=== PATIENT | male | born 1960 | race American Indian/Alaskan Native ===

== ENCOUNTER 2020-08-26 16:57 | Observation (INO) | payer OTHER ==
[2020-08-26] MEDS ORDERED: ASPIRIN 325 MG TAB PO ONE (17:17)
[2020-08-26] MEDS ORDERED: SODIUM CHLORIDE 0.9% 500 ML 500 ML IV SCH (18:00)
[2020-08-26 18:04] LABS: Basophils # (Auto) 0.1 K/mm3 (0.0-0.1); Basophils % (Auto) 1.2 % (0.0-1.8); Eosinophils # (Auto) 0.2 K/mm3 (0.0-0.4); Eosinophils % (Auto) 4.3 % (0.0-4.3); Hematocrit 42.6 % (35.5-45.6); Hemoglobin 15.1 gm/dl (11.8-15.2); Lymphocytes # (Auto) 1.2 K/mm3 (1.2-5.4); Lymphocytes % (Auto) 21.6 % (13.4-35.0); Mean Corpuscular HGB Conc 35 % (32-34); Mean Corpuscular Volume 91 fl (84-94); Monocytes # (Auto) 0.6 K/mm3 (0.0-0.8); Monocytes % (Auto) 10.1 % (0.0-7.3); Platelet Count 144 K/mm3 (140-440); Red Blood Count 4.69 M/mm3 (3.65-5.03); Red Cell Distribution Width 12.8 % (13.2-15.2)
[2020-08-26 18:18] LABS: Alanine Aminotransferase 20 units/L (7-56); Albumin 4.4 g/dL (3.9-5); BUN/Creatinine Ratio 14; Blood Urea Nitrogen 11 mg/dL (9-20); Calcium 8.9 mg/dL (8.4-10.2); Hemolysis Index 12
--- NOTE | 2020-08-26 18:22 | XRay Report ---
CHEST 2 VIEWS INDICATION / CLINICAL INFORMATION: SOB WITH CHEST PRESSURE. COMPARISON: None available. FINDINGS: SUPPORT DEVICES: None. HEART / MEDIASTINUM: The heart size and pulmonary vasculature are normal. The aorta is normal in humza tanja. LUNGS / PLEURA: No significant pulmonary or pleural abnormality. No pneumothorax. ADDITIONAL FINDINGS: No significant additional findings. IMPRESSION: No acute findings. Signer Name: Chidi Morgan MD Signed: 08/26/2020 6:17 PM Workstation Name: [id number]
[2020-08-26 19:05] LABS: INR 1.02 (0.87-1.13)
--- NOTE | 2020-08-27 02:08 | Emergency Department Report ---
ED Chest Pain HPI - General Chief Complaint: Chest Pain Stated Complaint: CHEST PAINS Time Seen by Provider: 08/27/20 01:50 Source: patient Mode of arrival: Ambulatory Limitations: No Limitations - History of Present Illness Initial Comments: Patient is 60 years old male with history of hypertension and remote history of smoking. Patient presented to the ER complaining of substernal chest pain with no radiation. Patient stated that pain has been going on for few days. Patient was sent by his senior lead java developer Dr. Garcia for cardiac catheterization in the morning. Patient stated that he already took his aspirin 325mg. Patient denied any fever or chills. No cough or shortness of breath. MD Complaint: chest pain -: days(s) Onset: during rest Pain Location: substernal Pain Radiation: none Severity scale (0 -10): 5 Quality: tightness, heaviness Improves With: nothing - Related Data Allergies Allergy/AdvReac Type Severity Reaction Status Date / Time No Known Allergies Allergy Verified 08/26/20 18:03 Heart Score - HEART Score History: Moderately suspicious EKG: Non-specific Age: 45-65 Risk factors: 1-2 risk factors Troponin: < normal limit HEART Score: 4 - EKG Read Time Time EKG Completed: 17:34 EKG Read Time: 17:35 ED Review of Systems ROS: Stated complaint: CHEST PAINS Other details as noted in HPI Comment: All other systems reviewed and negative Constitutional: denies: chills, fever Respiratory: denies: cough, shortness of breath, SOB with exertion Cardiovascular: chest pain. denies: palpitations, dyspnea on exertion Gastrointestinal: denies: abdominal pain, nausea, vomiting Neurological: denies: headache, weakness, numbness, paresthesias, confusion ED Past Medical Hx - Past Medical History Previous Medical History?: Yes Hx Hypertension: Yes - Surgical History Past Surgical History?: No - Social History Smoking Status: Never Smoker Substance Use Type: Alcohol ED Physical Exam - General Limitations: No Limitations General appearance: alert, in no apparent distress - Head Head exam: Present: atraumatic, normocephalic, normal inspection - Eye Eye exam: Present: normal appearance, PERRL - ENT ENT exam: Present: normal exam, normal orophraynx, mucous membranes moist - Neck Neck exam: Present: normal inspection, full ROM. Absent: tenderness, meningismus - Respiratory Respiratory exam: Present: normal lung sounds bilaterally - Cardiovascular Cardiovascular Exam: Present: regular rate, normal rhythm, normal heart sounds - GI/Abdominal GI/Abdominal exam: Present: soft, normal bowel sounds. Absent: distended, tenderness, guarding, rebound, rigid, organomegaly, mass, bruit, pulsatile mass, hernia - Extremities Exam Extremities exam: Present: normal inspection, full ROM, normal capillary refill. Absent: tenderness - Back Exam Back exam: Present: normal inspection, full ROM. Absent: CVA tenderness (R), CVA tenderness (L) - Neurological Exam Neurological exam: Present: alert, oriented X3, CN II-XII intact - Psychiatric Psychiatric exam: Present: normal mood - Skin Skin exam: Present: warm, intact, normal color ED Course Vital Signs 08/26/20 08/26/20 08/27/20 17:13 20:50 01:55 Temperature 98.5 F 98.2 F Pulse Rate 62 61 66 Respiratory 18 18 16 Rate Blood Pressure 141/99 Blood Pressure 149/86 157/86 [Right] O2 Sat by Pulse 96 96 100 Oximetry ED Medical Decision Making - Lab Data Result diagrams: 08/26/20 17:42 08/26/20 17:42 - EKG Data -: EKG Interpreted by Or EKG shows normal: sinus rhythm Rate: normal - EKG Data Interpretation: no acute changes - Radiology Data Radiology results: report reviewed - Medical Decision Making Patient is 60 years old male with history of hypertension and remote history of smoking. Patient presented to the ER complaining of substernal chest pain with no radiation. Patient stated that pain has been going on for few days. Patient was sent by his senior lead java developer Dr. Garcia for cardiac catheterization in the morning. Patient stated that he already took his aspirin 325mg. Patient denied any fever or chills. No cough or shortness of breath. EKG showed no ST elevation. Chest x-ray is unremarkable. Labs reviewed and is negative including a troponin x3. Potassium slightly low patient given potassium. I discussed the patient with , he agreed to admit the patient to medical service for further management. Critical Care Time: Yes Critical care time in (mins) excluding proc time.: 30 Critical care attestation.: If time is entered above; I have spent that time in minutes in the direct care of this critically ill patient, excluding procedure time. ED Disposition Clinical Impression: Unstable angina, Acute hypokalemia Disposition: OP ADMIT IP TO THIS HOSP Is pt being admited?: Yes Condition: Stable Instructions: Angina, [id number] Referrals: PRIMARY CARE, [Primary Care Provider] - 3-5 Days
[2020-08-27] MEDS ORDERED: NITROGLYCERIN 0.4 MG TAB SUBL SL PRN (02:48)
[2020-08-27] MEDS ORDERED: MAGNESIUM HYDROXIDE (MOM) ORAL LIQD UDC PO PRN (02:48)
[2020-08-27] MEDS ORDERED: MORPHINE 4 MG/1 ML INJ IV PRN (02:48)
[2020-08-27] MEDS ORDERED: ACETAMINOPHEN 325 MG TAB PO PRN ×2 (02:48)
[2020-08-27] MEDS ORDERED: ONDANSETRON 4 MG/2 ML INJ IV PRN (02:48)
[2020-08-27] MEDS ORDERED: traMADol 50 MG TAB PO PRN (02:48)
[2020-08-27] MEDS ORDERED: SODIUM CHLORIDE 0.9% 500 ML 500 ML IV ONE (03:01)
--- NOTE | 2020-08-27 03:04 | History and Physical Report ---
History of Present Illness Date of examination: 08/27/20 Date of admission: 08/27/20 02:20 Chief complaint: Chest Pain History of present illness: 60-year-old male with known history of hypertension and former smoker presenting in the emergency room today complaining of chest pain. Chest pain has been substernal and there has been no radiation. This has been ongoing for the past few days. He denies any headache or dizziness, denies any nausea vomiting, denies any cough or shortness of breath and no fever or chills. He has been following up with his auto motor mechanic Dr. Garcia who has scheduled him for cardiac catheterization in the a.m. Work-up in the emergency room today include the EKG, chest x-ray and troponin has been unremarkable. Patient is being admitted for chest pain evaluation and has been scheduled for cardiac catheterization in the a.m. He follows up with Dr. Garcia Past History Past Medical History: hypertension Past Surgical History: No surgical history Social history: alcohol abuse (Occasional alcohol) Family history: no significant family history Medications and Allergies Allergies Allergy/AdvReac Type Severity Reaction Status Date / Time No Known Allergies Allergy Verified 08/26/20 18:03 Active Meds: Active Medications Acetaminophen (Acetaminophen 325 Mg Tab) 650 mg PO Q4H PRN PRN Reason: Pain MILD(1-3)/Fever >100.5/THURMAN Acetaminophen (Acetaminophen 325 Mg Tab) 650 mg PO Q6H PRN PRN Reason: Pain, Mild (1-3) Aspirin (Aspirin Ec 325 Mg Tab) 325 mg PO ONCE ONE Stop: 08/27/20 06:01 Heparin Sodium (Porcine) (Heparin 5,000 Unit/1 Ml Vial) 5,000 unit SUB-Q Q8HR KEYLA Sodium Chloride (Nacl 0.9% 500 Ml) 500 mls @ 50 mls/hr IV DIRECT KEYLA Stop: 08/27/20 03:59 Potassium Chloride (Kcl 10meq/100ml) 10 meq in 100 mls @ 100 mls/hr IV Q1H KEYLA Stop: 08/27/20 04:59 Magnesium Hydroxide (Magnesium Hydroxide (Mom) Oral Liqd Udc) 30 ml PO Q4H PRN PRN Reason: Constipation Morphine Sulfate (Morphine 4 Mg/1 Ml Inj) 2 mg IV Q5MIN PRN PRN Reason: Chest Pain Nitroglycerin (Nitroglycerin 0.4 Mg Tab Subl) 0.4 mg SL Q5M PRN PRN Reason: Chest Pain Ondansetron HCl (Ondansetron 4 Mg/2 Ml Inj) 4 mg IV Q8H PRN PRN Reason: Nausea And Vomiting Sodium Chloride (Sodium Chloride 0.9% 10 Ml Flush Syringe) 10 ml IV BID KEYLA Sodium Chloride (Sodium Chloride 0.9% 10 Ml Flush Syringe) 10 ml IV PRN PRN PRN Reason: LINE FLUSH Sodium Chloride (Sodium Chloride 0.9% 10 Ml Flush Syringe) 10 ml IV PRN PRN PRN Reason: LINE FLUSH Tramadol HCl (Tramadol 50 Mg Tab) 50 mg PO Q6H PRN PRN Reason: Pain, Moderate (4-6) Review of Systems Constitutional: no fever, no chills Ears, nose, mouth and throat: no nasal congestion, no sore throat Cardiovascular: chest pain, no palpitations Respiratory: no cough, no shortness of breath Gastrointestinal: no abdominal pain, no nausea, no vomiting, no diarrhea Genitourinary Male: no dysuria, no hematuria, no flank pain, no nocturia Musculoskeletal: no neck pain, no low back pain Integumentary: no rash, no pruritis Neurological: no headaches, no confusion Psychiatric: no anxiety, no depression Endocrine: no polyphagia, no polydipsia, no polyuria, no nocturia Exam - Constitutional Vitals: Temp Pulse Resp BP Pulse Ox 98.2 F 66 16 157/86 100 08/27/20 01:55 08/27/20 01:55 08/27/20 01:55 08/27/20 01:55 08/27/20 01:55 General appearance: Present: no acute distress, well-nourished - EENT Eyes: Present: PERRL, EOM intact. Absent: scleral icterus ENT: hearing intact, clear oral mucosa, dentition normal - Neck Neck: Present: supple, normal ROM - Respiratory Respiratory effort: normal Respiratory: bilateral: CTA - Cardiovascular Rhythm: regular Heart Sounds: Present: S1 & S2. Absent: gallop, systolic murmur, diastolic murmur, rub, click - Extremities Extremities: no ischemia, pulses intact, pulses symmetrical, No edema, normal temperature, normal color, Full ROM Peripheral Pulses: within normal limits - Abdominal General gastrointestinal: Present: soft, non-tender, non-distended, normal bowel sounds. Absent: mass - Integumentary Integumentary: Present: clear, warm, dry. Absent: rash - Musculoskeletal Musculoskeletal: strength equal bilaterally - Psychiatric Psychiatric: appropriate mood/affect, intact judgment & insight, memory intact, cooperative - Neurologic Neurologic: CNII-XII intact, no focal deficits, moves all extremities HEART Score - HEART Score History: Slightly suspicious EKG: Non-specific Age: 45-65 Risk factors: 1-2 risk factors Troponin: Troponin T < 0.010 ng/mL (0.00-0.029) 08/26/20 22:59 Troponin: < normal limit HEART Score: 3 Results - Labs CBC & Chem 7: 08/26/20 17:42 08/26/20 17:42 Labs: Abnormal lab results 08/26/20 08/26/20 Range/Units 17:42 17:42 MCHC 35 H (32-34) % RDW 12.8 L (13.2-15.2) % [place] % (Auto) 10.1 H (0.0-7.3) % Sodium 131 L (137-145) mmol/L Potassium 3.2 L (3.6-5.0) mmol/L Chloride 92.2 L (98-107) mmol/L Assessment and Plan - Patient Problems (1) Unstable angina Current Visit: Yes Status: Acute Plan to address problem: Patient has been admitted and placed on telemetry. He has been kept n.p.o. for possible cardiac catheterization this a.m. Patient has had dose of aspirin 325 mg p.o. We placed on sublingual nitroglycerin and IV morphine as needed for chest pain. Will await further evaluation by the auto motor mechanic. (2) Hypokalemia Current Visit: Yes Status: Acute Plan to address problem: Potassium will be repleted and will monitor chemistry. (3) Hypertension Current Visit: Yes Status: Acute Plan to address problem: We will resume routine home medications once reconciled and monitor vital signs closely. (4) DVT prophylaxis Current Visit: Yes Status: Acute Plan to address problem: Patient placed on subcutaneous heparin. (5) Full code status Current Visit: Yes Status: Acute Plan to address problem: Patient is a full code.
[2020-08-27] MEDS: POTASSIUM CHLORIDE 10 MEQ 10 MEQ/100 ML BAG IV SCH ×2 (03:05→05:33)
[2020-08-27] MEDS ORDERED: POTASSIUM CHLORIDE ER 20 MEQ TAB PO ONE (05:41)
[2020-08-27] MEDS ORDERED: ASPIRIN EC 325 MG TAB PO ONE (06:00)
[2020-08-27 06:10] LABS: Basophils % (Auto) 1.1 % (0.0-1.8); Eosinophils # (Auto) 0.2 K/mm3 (0.0-0.4); Eosinophils % (Auto) 4.6 % (0.0-4.3); Hematocrit 40.5 % (35.5-45.6); Hemoglobin 14.3 gm/dl (11.8-15.2); Lymphocytes # (Auto) 0.9 K/mm3 (1.2-5.4); Lymphocytes % (Auto) 24.2 % (13.4-35.0); Mean Corpuscular HGB Conc 35 % (32-34); Mean Corpuscular Volume 91 fl (84-94); Monocytes # (Auto) 0.4 K/mm3 (0.0-0.8); Monocytes % (Auto) 12.1 % (0.0-7.3); Platelet Count 132 K/mm3 (140-440); Red Blood Count 4.44 M/mm3 (3.65-5.03); Red Cell Distribution Width 12.9 % (13.2-15.2)
[2020-08-27 06:25] LABS: BUN/Creatinine Ratio 16; Blood Urea Nitrogen 11 mg/dL (9-20); Calcium 8.8 mg/dL (8.4-10.2); Hemolysis Index 11
[2020-08-27 06:28] LABS: Chol/HDL Ratio 1.67 %
[2020-08-27] MEDS ORDERED: HEPARIN/NS 5000 UNIT/500ML 1,000 ML IR ONE (08:18)
[2020-08-27] MEDS ORDERED: VERAPAMIL 5 MG/2 ML INJ ONE (08:19)
[2020-08-27] MEDS ORDERED: HEPARIN 10,000 UNITS/10 ML VIAL ONE (08:19)
[2020-08-27] MEDS ORDERED: MIDAZOLAM 2 MG/2 ML INJ ONE (08:19)
[2020-08-27] MEDS ORDERED: LIDOCAINE (2%) 20 MG/1 ML VIAL 20 ML MDV INFILTRATI ONE (08:19)
[2020-08-27] MEDS ORDERED: NITROGLYCERIN SYRINGE 3 ML ONE (08:19)
[2020-08-27] MEDS ORDERED: fentaNYL 100 MCG/2 ML INJ ONE (08:19)
[2020-08-27] MEDS ORDERED: SODIUM CHLORIDE 0.9% 500 ML 500 ML ONE (08:20)
[2020-08-27] MEDS ORDERED: ASPIRIN 81 MG TAB CHEW ONE (08:20)
[2020-08-27] MEDS ORDERED: NITROGLYCERIN 600 MCG/3 ML SYRINGE ART-SHEATH ONE (09:06)
--- NOTE | 2020-08-27 10:03 | Cardiac Catherization Report ---
DATE OF PROCEDURE: 08/27/2020 INDICATION FOR PROCEDURE: The patient is a very pleasant 60-year-old gentleman who has had recurrent chest pain over the last several weeks, was admitted to [facility] a couple of weeks ago, had an abnormal nuclear stress test. Cardiac CT which revealed mild to moderate coronary artery disease. Continued to have accelerating symptoms crescendo unstable angina, presented to unscheduled office visit yesterday due to these symptoms. His was there as well. He was sent directly to the emergency room for admission for further care. He is referred for left heart catheterization. Risks, benefits and alternatives discussed at length prior to obtaining informed consent. DESCRIPTION OF PROCEDURE: The patient was brought to r and d lab technician in a postabsorptive state, prepped and draped in sterile fashion. Mundo's test in right hand was normal. A 2 mL of 2% lidocaine used to anesthetize the right wrist. A standard 6-Trinidadian hydrophilic sheath was used to cannulate the right radial artery via modified Seldinger technique. All exchanges performed to exchange a J-tip guidewire. JL3.5 catheter used to engage the left main, no dampening or ventricularization. Angiography performed in multiple projections. JR4 catheter used to cross the aortic valve under fluoroscopic guidance. Left ventriculography was performed in 30 ELDER and 30 DJIBOUTIAN projections via hand injection, catheter flushed. Manual pullback performed with continuous pressure monitoring and engaged the right coronary, no dampening or ventricularization. Cineangiography performed in multiple projections. Next, the patient has recurrent chest pain, hypertension, arm pain, we decided to perform a root aortogram. This was performed in DJIBOUTIAN projection with a 6-Trinidadian pigtail catheter and the power injector. Once this was complete, the catheter was removed from the oumar wire. Sheath removed, manual pressure used to achieve hemostasis. The patient tolerated the procedure well. No immediate complications. I directly supervised the administration of moderate sedation with fentanyl and Versed from 9:00 a.m. to 9:25 a.m. DATA: The patient remained in normal sinus rhythm throughout the procedure. This is a right dominant system. Right coronary is a moderate sized vessel, courses the anterior intraventricular groove, wraps around the apex. No significant disease. Left main without significant disease, bifurcates left anterior descending, left circumflex. Left circumflex, moderate sized vessel, courses AV groove, large OM trunk, diminutive to AV groove, circ, no significant disease. LAD is a moderate sized vessel coursing anterior intergroove, wraps around the apex. No significant disease. There is a long segment that is intramyocardial, but no evidence of diastolic collapse, no obstructive disease identified. Left ventriculography reveals normal systolic performance. Estimated ejection fraction 55-60%. No evidence of aortic stenosis. Root aortogram reveals normal contour, no evidence of dissection penetrating aortic ulcer or aortic insufficiency. Normal great vessel anatomy. CONCLUSION: 1. No angiographic evidence of significant epicardial coronary disease in his right dominant system. A mid LAD intramyocardial bridge is noted, but no obstructive disease or diastolic collapse. 2. Normal left ventricular systolic performance, estimated ejection fraction 55-60%. 3. No evidence of aortic stenosis. 4. Normal root aortography without evidence of dissection penetrating aortic ulcer or aortic insufficiency. The patient is clinically stable, chest pain free. His chest pain is clearly not cardiac. Continue aggressive medical management. Results of the procedure were explained at length to the patient and his at length. Standard radial care. He will be discharged later today. Follow up with me in the office. TID: [id number] RECEIPT: [id number] NAYLA/JOSE
[2020-08-27] MEDS: HEPARIN 5,000 UNIT/1 ML VIAL SUB-Q SCH ×2 (10:54→13:34)
--- NOTE | 2020-08-27 11:57 | Consultation ---
History of Present Illness Consult date: 08/27/20 Requesting physician: TOMMY GOLDEN Consult reason: chest pain History of present illness: tomas is 60 years old male with history of chest pain, palpitations, abnormal MPI stress test, coronary artery disease in [place] vessel, hypertension and remote history of smoking. Patient is followed by Dr. Vicky Christian with our office. Patient presents to clinic with complaint of substernal chest pain radiating to the left arm x1 day. Patient was recently discharged from [facility] where he had abnormal MPI stress test and subsequently declined cardiac catheterization. Patient is sent to [facility] ER for new onset chest pain. Cardiac cath to be performed in the a.m. Patient denies any weakness dizziness syncope, shortness of breath, abdominal pain, N/V/D, recent illness or known exposures. Past History Past Medical History: hypertension, other Past Surgical History: No surgical history Social history: alcohol abuse (Occasional alcohol) Family history: no significant family history Medications and Allergies Allergies Allergy/AdvReac Type Severity Reaction Status Date / Time No Known Allergies Allergy Verified 08/26/20 18:03 Active Meds: Active Medications Acetaminophen (Acetaminophen 325 Mg Tab) 650 mg PO Q4H PRN PRN Reason: Pain MILD(1-3)/Fever >100.5/THURMAN Heparin Sodium (Porcine) (Heparin 5,000 Unit/1 Ml Vial) 5,000 unit SUB-Q Q8HR [facility] Last Admin: 08/27/20 10:54 Dose: Not Given Documented by: Magnesium Hydroxide (Magnesium Hydroxide (Mom) Oral Liqd Udc) 30 ml PO Q4H PRN PRN Reason: Constipation Morphine Sulfate (Morphine 4 Mg/1 Ml Inj) 2 mg IV Q5MIN PRN PRN Reason: Chest Pain Nitroglycerin (Nitroglycerin 0.4 Mg Tab Subl) 0.4 mg SL Q5M PRN PRN Reason: Chest Pain Ondansetron HCl (Ondansetron 4 Mg/2 Ml Inj) 4 mg IV Q8H PRN PRN Reason: Nausea And Vomiting Sodium Chloride (Sodium Chloride 0.9% 10 Ml Flush Syringe) 10 ml IV BID [facility] Last Admin: 08/27/20 10:52 Dose: Not Given Documented by: Sodium Chloride (Sodium Chloride 0.9% 10 Ml Flush Syringe) 10 ml IV PRN PRN PRN Reason: LINE FLUSH Tramadol HCl (Tramadol 50 Mg Tab) 50 mg PO Q6H PRN PRN Reason: Pain, Moderate (4-6) Review of Systems Constitutional: no weight loss, no weight gain, no fever, no chills, no sweats Ears, nose, mouth and throat: no ear pain, no ear discharge, no decreased hearing, no nose pain, no nasal congestion, no nasal discharge Cardiovascular: chest pain, no palpitations, no rapid/irregular heart beat, no edema, no syncope Respiratory: no cough, no hemoptysis, no shortness of breath, no dyspnea on exertion Gastrointestinal: no abdominal pain, no nausea, no vomiting, no diarrhea Genitourinary Male: no flank pain Musculoskeletal: no neck stiffness, no neck pain, no shooting arm pain, no arm numbness/tingling, no low back pain, no shooting leg pain Integumentary: no rash, no pruritis, no redness, no sores, no wounds Neurological: no head injury, no paralysis, no weakness, no parathesias, no numbness, no tingling, no seizures, no syncope Psychiatric: no anxiety Endocrine: no cold intolerance, no heat intolerance Hematologic/Lymphatic: no easy bruising, no easy bleeding Allergic/Immunologic: no urticaria Physical Examination Last Vital Signs Temp 97.9 F 08/27/20 03:32 Pulse 59 L 08/27/20 11:37 Resp 19 08/27/20 11:37 BP 129/83 08/27/20 10:43 Pulse Ox 95 08/27/20 10:43 General appearance: mild distress HEENT: Positive: PERRL, Normocephaly, Mucus Membranes Moist Neck: Positive: neck supple, trachea midline Cardiac: Positive: Reg Rate and Rhythm Lungs: Positive: clear to auscultation, Normal Breath Sounds Neuro: Positive: Grossly Intact Abdomen: Positive: Unremarkable, Soft Skin: Negative: Rash, Wound Extremities: Present: upper extr. pulses, lower extr. pulses. Absent: edema Results 08/27/20 04:52 08/27/20 04:52 Cardiac Enzymes 08/26/20 Range/Units 17:42 AST 23 (5-40) units/L Coagulation 08/26/20 Range/Units 18:05 PT 13.2 (12.2-14.9) Sec. INR 1.02 (0.87-1.13) Lipids 08/27/20 Range/Units 04:52 Triglycerides 49 (2-149) mg/dL Cholesterol 189 (50-199) mg/dL HDL Cholesterol 113 H (40-59) mg/dL Cholesterol/HDL Ratio 1.67 % CBC 08/26/20 08/27/20 Range/Units 17:42 04:52 WBC 5.5 3.6 L (4.5-11.0) K/mm3 RBC 4.69 4.44 (3.65-5.03) M/mm3 Hgb 15.1 14.3 (11.8-15.2) gm/dl Hct 42.6 40.5 (35.5-45.6) % Plt Count 144 132 L (140-440) K/mm3 Lymph # (Auto) 1.2 0.9 L (1.2-5.4) K/mm3 [place] # (Auto) 0.6 0.4 (0.0-0.8) K/mm3 Eos # (Auto) 0.2 0.2 (0.0-0.4) K/mm3 Baso # (Auto) 0.1 0.0 (0.0-0.1) K/mm3 Comprehensive Metabolic Panel 08/26/20 08/27/20 Range/Units 17:42 04:52 Sodium 131 L 132 L (137-145) mmol/L Potassium 3.2 L 3.5 L (3.6-5.0) mmol/L Chloride 92.2 L 94.7 L (98-107) mmol/L Carbon Dioxide 24 28 (22-30) mmol/L BUN 11 11 (9-20) mg/dL Creatinine 0.8 0.7 L (0.8-1.3) mg/dL Glucose 93 95 (75-100) mg/dL Calcium 8.9 8.8 (8.4-10.2) mg/dL AST 23 (5-40) units/L ALT 20 (7-56) units/L Alkaline Phosphatase 55 (35-129) units/L Total Protein 7.1 (6.3-8.2) g/dL Albumin 4.4 (3.9-5) g/dL - Imaging and Cardiology Cardiac cath: report reviewed EKG: report reviewed, image reviewed - EKG Interpretation EKG: sinus rhythm EKG interpretations - Telemetry EKG Rhythm: Sinus Bradycardia - EKG Sinus rhythms and dysrhythmias: sinus rhythm Assessment and Plan Telemetry reviewed: Sinus bradycardia 58. No events #Chest pain * Chest pain is currently resolved. Patient is chest pain-free with no episodes of shortness of breath or chest pain overnight. * twelve-lead reviewed no ST segment elevation. Troponins are negative x2. RI is ruled out. * Left heart cath reviewed (08/27/2020): No angiographic evidence of signi ficant epicardial coronary disease in his right dominant system. A mid LAD intramyocardial bridge is noted but no obstructive disease or diastolic collapse. Normal LV SP EF 55 to 60%. No evidence of AMS. Normal root aortography without evidence of dissection penetrating aortic ulcer or aortic insufficiency. * Echocardiogram reviewed (08/22/2020): LVEF is 55 to 60%. LV SF is normal. Mild concentric LVH. RV SF is normal. Right atria is mildly dilated. RVSP is 25 mmHg. No valvular abnormalities. #Hypertension * Patient should resume home cardiac regimen: Including atorvastatin 10 mg p. o. nightly, ASA 81 mg p.o. daily, atenolol 25 mg p.o. as prescribed #DVT prophylaxis * Heparin SQ Patient is currently stable cardiac status. Unlikely the chest pain has cardiac etiology. LHC shows normal coronary arteries. Echocardiogram shows no cardiomyopathy. Patient may discharge from cardiac standpoint. Patient should follow-up with Dr Gabriele Garcia In our [facility] [place] office on 09/18/20 at 1:45 PM.. #[id number] Patient is clinically stable and chest pain-free. Chest pain is not of cardiac etiology. Continue aggressive medical management. - Patient Problems (1) Chest pain Current Visit: Yes Status: Acute (2) Normal coronary arteries Current Visit: Yes Status: Chronic (3) DVT prophylaxis Current Visit: Yes Status: Acute (4) Hypertension Current Visit: Yes Status: Chronic
[2020-08-27 12:50] VITALS: BP 125/66
--- NOTE | 2020-08-27 14:19 | Discharge Summary ---
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 Vicky Christian presents to clinic with complaint of substernal chest pain radiating to the left arm x1 day. Patient was recently discharged from [facility] where he had abnormal MPI stress test and subsequently declined cardiac catheterization. Patient is sent to [facility] for new onset chest pain. Cardiac cath to be performed in the a.m. which showed No angiographic evidence of significant epicardial coronary disease in his right dominant system. Echocardiogram (08/22/2020) showed LVEF is 55 to 60%. Cardiology then cleared the patient for discharge. Patient was recommended to follow-up with Dr. Vicky Panchal on 09/18/20 at 1:45 PM. Discharge plan and management was thoroughly discussed with the patient and he verbalized understanding. Disposition: DC-01 TO HOME OR SELFCARE Final Discharge Diagnosis (Prints w/discharge instructions): Chest pain, atypical -likely due to GERD. Hypertension. Hypokalemia. Hyponatremia Time spent for discharge: 35 minutes Core Measure Documentation - Palliative Care Palliative Care/ Comfort Measures: Not Applicable - Core Measures Any of the following diagnoses?: history only Exam - Physical Exam Narrative exam: GENERAL: well-developed and well-nourished white male lying on bed appeared to be in no discomfort. HEENT: Normocephalic. Atraumatic. No conjunctival congestion or icterus. Patient has moist mucous membranes. NECK: Supple. Trachea midline. CHEST/LUNGS: Clear to auscultated bilaterally, breathing nonlabored. No wheezes crackles or rhonchi. HEART/CARDIOVASCULAR: Regular in rate and rhythm. S1 and S2 positive. ABDOMEN: Abdomen is soft, nontender. Patient has normal bowel sounds. SKIN: There is no rash. Warm and dry. NEURO: No focal motor deficit. Follows command. MUSCULOSKELETAL: No joint effusion or tenderness. EXTRIMITY: No edema, no cyanosis or clubbing. PSYCH: Cooperative. - Constitutional Vitals: Temp Pulse Resp BP Pulse Ox 98.0 F 66 19 125/66 95 08/27/20 12:30 08/27/20 12:30 08/27/20 12:30 08/27/20 12:30 08/27/20 10:43 Plan Activity: advance as tolerated Weight Bearing Status: Weight Bear as Tolerated Diet: low fat, low salt Special Instructions: record daily BP diary Additional Instructions: follow-up with Dr. Vicky Panchal on 09/18/20 at 1:45 PM. Follow up with: PRIMARY CARE, [Primary Care Provider] - 3-5 Days Prescriptions: amLODIPine 2.5 mg PO DAILY #30 tab Aspirin EC [Halfprin EC] 81 mg PO QDAY #30 tablet. Potassium Chloride [K-Dur] 20 meq PO BID #6 tab Pantoprazole [Protonix] 40 mg PO QDAY #30 tablet
--- NOTE | 2020-08-29 11:40 | Electrocardiograph Report ---
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
--- NOTE | 2020-08-29 11:47 | Electrocardiograph Report ---
[facility] Test Date: 2020-08-27 Test Time: 09:56:50 Pat Name: AMANDA YUSUF JR Department: Room: A475 1 Gender: M Director Of Reimbursement: WARREN : 1960 Requested By: TOMMY GOLDEN Order Number: [id number] Reading MD: Elizabeth Grande Measurements Intervals [place] Rate: 58 P: -6 OK: 145 QRS: -19 QRSD: 122 T: 29 QT: 411 QTc: 405 Interpretive Statements Sinus rhythm Nonspecific intraventricular conduction delay Compared to ECG 08/26/2020 17:34:06 No significant changes Electronically Signed On 08-29-2020 11:47:03 EDT by Elizabeth Grande
== END 2020-08-27 15:23 | disposition home or self-care (01) ==
LOC: ED 16:57 → INTOOBSV 08-27 02:20 → 4A 08-27 02:20
PROVIDERS: ADMIT Internal Medicine Geriatric Medicine; ATTEND Internal Medicine
DX: I20.0 Unstable angina (principal); I10 Essential (primary) hypertension; E87.6 Hypokalemia; K21.9 Gastro-esophageal reflux disease without esophagitis; E87.1 Hypo-osmolality and hyponatremia; Z79.82 Long term (current) use of aspirin; Z95.1 Presence of aortocoronary bypass graft
CPT/HCPCS: 36415; 71046; 80048; 80053; 80061; 82962; 84484; 85025; 85610; 93005; 93458; 93567; 96365; 96366; 96372; 99291; C1894; G0378; J1644; J2250; J3010; J3480; J7040; 96360; Q9967